=== PATIENT | female | born 1990 | race Caucasian/White ===

== ENCOUNTER 2016-11-29 11:45 | Emergency (ER) | payer OTHER ==
[~2016-11-29] VITALS: Ht 152.4 cm; Wt 58.5 kg
[2016-11-29 11:52] VITALS: TEMP 36.9
[2016-11-29] MEDS ORDERED: SODIUM CHLORIDE 0.9% 1000ML 1,000 ML IV STA (12:09)
[2016-11-29] MEDS ORDERED: DiphenhydrAMINE HCL 50 MG/ML VIAL IV STA (12:09)
[2016-11-29] MEDS ORDERED: BACITRACIN OINT 15 GM TUBE EXT STA (12:09)
[2016-11-29] MEDS ORDERED: KETOROLAC TROMETHAMINE 30 MG/ML VIAL IV STA (12:09)
[2016-11-29] MEDS ORDERED: ONDANSETRON INJ 2 MG/ML 2 ML VIAL IV STA (12:09)
[2016-11-29] MEDS ORDERED: CEFTRIAXONE SOD INJ 1 GM ADDVIAL IV STA (12:11)
[2016-11-29] MEDS ORDERED: SULFAMETHOXAZOLE/TRIMETHOPRIM DS 800/160MG TAB PO STA (12:11)
--- NOTE | 2016-11-29 12:12 | EMERGENCY ROOM VISIT NOTE ---
History Report prepared by Monyiblionel: Maggie Menon Under the Supervision of: Dr. Carson Frost M.D. First contact with patient: 11:59 Chief Complaint: INFECTION Stated Complaint: SORES, RASH, VOMITING Nursing Triage Summary: Pt presents with generalized wounds. Hx of MRSA. Pus. Seen by PCP on Sat and started on unknown meds, "didn't get them because doesn't have insurance." N/V, SOB, "can't get enough to drink." History of Present Illness The patient is a 26 year old female who presents to the Emergency Room with complaints of a worsening infection for the past 4 days. She reports this past Saturday, she saw her primary care physician, Dr. Washburn of [facility] , who recommended she start medication, but the patient declined as she does not currently have insurance. The patient admits to a history of MRSA and IV drug abuse. She notes the wounds are located all over her face and have been spreading over the past few days. She rates her discomfort as a 7/10 in severity. Some of the wounds are oozing pus. The patient complains of nausea and vomiting and states she feels very dehydrated. She also complains of feeling short of breath. Source of History: patient Onset: 4 days [employer] Position: head (face) Symptom Intensity: 7/10 Quality: other (infection) Timing: worsening Associated Symptoms: + SOB, + nausea, + vomiting Review of Systems See HPI for pertinent positives & negatives. A total of 10 systems reviewed and were otherwise negative. Past Medical & Surgical Social History Problems: (1) ETOH abuse (2) IV drug abuse Family History Cancer Hypertension Social History Smoking Status: Current Every Day Smoker Alcohol Use: heavy Drug Use: none Marital Status: single Housing Status: lives with family Occupation Status: unemployed Current/Historical Medications Scheduled Cephalexin Monohydrate (Keflex), 1 CAP PO QID Sulfa/Trimethoprim (Bactrim Ds 800MG/160MG), 1 TAB PO BID Allergies Coded Allergies: No Known Allergies (Unverified , 11/29/16) Physical Exam Vital Signs Date Time Temp Pulse Resp B/P (MAP) Pulse Ox O2 Delivery O2 Flow Rate FiO2 11/29/16 16:47 129 20 115/71 99 Room Air 11/29/16 14:56 127 20 116/77 97 Room Air 11/29/16 13:50 102 20 145/72 100 Room Air 11/29/16 12:23 110 11/29/16 12:16 100 Room Air 11/29/16 11:52 36.9 123 20 116/81 99 Room Air Physical Exam GENERAL: Patient is a healthy-appearing well-nourished 26 year old female, actively itching her skin HEAD: Normocephalic atraumatic. Multiple sores all over face EYES: Ocular movements intact pupils equal and react to light OROPHARYNX mucous membranes are moist no exudates present no erythema or edema present NECK: Supple no nuchal rigidity CHEST: Good equal expansion LUNGS: Clear and equal to auscultation CARDIAC: Normal S1 and S2 ABDOMEN: Soft nontender no guarding BACK: No CVA tenderness EXTREMITIES: No pain upon palpation normal muscle strength in all groups no clubbing cyanosis or edema NEURO: Patient is following commands is answering questions appropriately. Alert and oriented x3 Cranial Nerves 2-12 grossly intact Medical Decision & Procedures Laboratory Results 11/29/16 12:32 Red Blood Count 4.45, Mean Corpuscular Volume 84.7, Mean Corpuscular Hemoglobin 31.0, Mean Corpuscular Hemoglobin Concent 36.6, Mean Platelet Volume 9.6, Neutrophils (%) (Auto) 71.1, Lymphocytes (%) (Auto) 20.9, Monocytes (%) (Auto) 6.6, Eosinophils (%) (Auto) 0.9, Basophils (%) (Auto) 0.2, Neutrophils # (Auto) 8.65, Lymphocytes # (Auto) 2.55, Monocytes # (Auto) 0.80, Eosinophils # (Auto) 0.11, Basophils # (Auto) 0.03 11/29/16 12:32 Test 11/29/16 12:32 White Blood Count 12.18 K/uL (4.8-10.8) Red Blood Count 4.45 M/uL (4.2-5.4) Hemoglobin 13.8 g/dL (12.0-16.0) Hematocrit 37.7 % (37-47) Mean Corpuscular Volume 84.7 fL (80-100) Mean Corpuscular Hemoglobin 31.0 pg (25-34) Mean Corpuscular Hemoglobin Concent 36.6 g/dl (32-36) Platelet Count 242 K/uL (130-400) Mean Platelet Volume 9.6 fL (7.4-10.4) Neutrophils (%) (Auto) 71.1 % Lymphocytes (%) (Auto) 20.9 % Monocytes (%) (Auto) 6.6 % Eosinophils (%) (Auto) 0.9 % Basophils (%) (Auto) 0.2 % Neutrophils # (Auto) 8.65 K/uL (1.4-6.5) Lymphocytes # (Auto) 2.55 K/uL (1.2-3.4) Monocytes # (Auto) 0.80 K/uL (0.11-0.59) Eosinophils # (Auto) 0.11 K/uL (0-0.5) Basophils # (Auto) 0.03 K/uL (0-0.2) RDW Standard Deviation 43.8 fL (36.4-46.3) RDW Coefficient of Variation 14.0 % (11.5-14.5) Immature Granulocyte % (Auto) 0.3 % Immature Granulocyte # (Auto) 0.04 K/uL (0.00-0.02) Anion Gap 10.0 mmol/L (3-11) Est Creatinine Clear Calc Drug Dose 72.9 ml/min Estimated GFR () 98.2 Estimated GFR (Non- 84.7 BUN/Creatinine Ratio 11.0 (10-20) Calcium Level 9.4 mg/dl (8.5-10.1) Total Bilirubin 0.4 mg/dl (0.2-1) Aspartate Amino Transf (AST/SGOT) 33 U/L (15-37) Alanine Aminotransferase (ALT/SGPT) 35 U/L (12-78) Alkaline Phosphatase 92 U/L (45-117) Total Protein 7.8 gm/dl (6.4-8.2) Albumin 3.6 gm/dl (3.4-5.0) Globulin 4.2 gm/dl (2.5-4.0) Albumin/Globulin Ratio 0.9 (0.9-2) Labs reviewed by ED physician. Medications Administered Medications (Trade) Dose Ordered Sig/David Route Start Time Stop Time Status Last Admin Dose Admin Sodium Chloride 1,000 ml @ 999 mls/hr Q1H1M STAT IV 11/29/16 12:09 11/29/16 13:09 DC 11/29/16 13:05 999 MLS/HR Ketorolac Tromethamine (Toradol Inj) 30 mg NOW STAT IV 11/29/16 12:09 11/29/16 12:11 DC 11/29/16 13:06 30 MG Diphenhydramine HCl (Benadryl Inj) 50 mg NOW STAT IV 11/29/16 12:09 11/29/16 12:11 DC 11/29/16 13:05 50 MG Ondansetron HCl (Zofran Inj) 4 mg NOW STAT IV 11/29/16 12:09 11/29/16 12:11 DC 11/29/16 13:05 4 MG Bacitracin (Bacitracin Oint) 1 appln NOW STAT EXT 11/29/16 12:09 11/29/16 12:12 DC 11/29/16 12:09 1 APPLN Ceftriaxone Sodium (Rocephin Inj) 1 gm NOW STAT IV 11/29/16 12:11 11/29/16 12:13 DC 11/29/16 12:11 1 GM Trimethoprim/ Sulfamethoxazole (Septra Ds 800/ 160MG Tab) 1 tab NOW STAT PO 11/29/16 12:11 11/29/16 12:13 DC 11/29/16 12:11 1 TAB Lorazepam (Ativan Inj) 1 mg NOW STAT IV 11/29/16 12:18 11/29/16 12:19 DC 11/29/16 13:06 1 MG Potassium Chloride (Klor-Con M10) 80 meq NOW STAT PO 11/29/16 13:15 11/29/16 13:16 DC 11/29/16 13:15 80 MEQ Nicotine (Nicoderm Cq 14MG Patch) 1 patch STK-MED ONCE .ROUTE 11/29/16 16:17 11/29/16 16:18 DC 11/29/16 16:21 1 PATCH ECG Indication: weakness Rate (beats per minute): 102 Rhythm: sinus tachycardia Findings: no acute ischemic change, no ectopy ED Course 1206: Past medical records reviewed. The patient was evaluated in room B10. A complete history and physical examination was performed. 1209: Bacitracin 1 appl EXT, Zofran 4 mg IV, Benadryl 50 mg, Toradol 30 mg IV, NSS 1000 ml @ 999 mls/hr IV. 1211: Septra Ds 800/160 mg 1 tab PO, Rocephin 1 gm IV. 1218: Ativan 1 mg IV. 1315: Potassium Chloride 80 meq PO. 1617: Nicotine 1 patch TD. 1630: I reevaluated the patient. She is feeling much better. I discussed her results and discharge instructions and she verbalized complete understanding and agreement. I did decline to prescribe pain medication for the patient. Medical Decision Prior records reviewed and summarized as above. Triage Nursing notes reviewed. The patient's history was concerning for swelling and redness of the skin. Differential diagnosis: Etiologies such as cellulitis, abscess, MRSA infection, DVT, necrotizing fasciitis, dermatitis, drug eruption, as well as others were entertained.. This is a 26-year-old female who was recently released from care home comes to the emergency department complaining of multiple sores all over her face. I suspect the patient has taken and illicit substance that has caused her to itch her face however the patient denies this. There was also some suspicion from nursing that the patient has taken something in the room. An IV was established , the patient given normal saline bolus, Ativan, Benadryl. Repeat examination revealed improvement patient's symptoms. The patient was started on Rocephin as well as Bactrim here in the emergency department. The patient again denied taking anything however refused over multiple hours to give a urine sample here in the emergency department. The patient is requesting something ago home with however I will place her on Keflex and Bactrim and stressed the need for follow- up with her primary care physician. Medication Reconcilliation Current Medication List: was personally reviewed by me Blood Pressure Screening Patient's blood pressure: Normal blood pressure Blood pressure disposition: Did not require urgent referral Impression Primary Impression: Abrasions of multiple sites Scribe Attestation The scribe's documentation has been prepared under my direction and personally reviewed by me in its entirety. I confirm that the note above accurately reflects all work, treatment, procedures, and medical decision making performed by me. Departure Information Dispostion Home / Self-Care Prescriptions Sulfa/Trimethoprim (Bactrim Ds 800MG/160MG) Tab 1 TAB PO BID for 10 Days, #20 TAB Prov: Carson Frost MD 11/29/16 Cephalexin Monohydrate (Keflex) 500 Mg Cap 1 CAP PO QID for 10 Days, #40 CAP Prov: Carson Frost MD 11/29/16 Referrals Dona Washburn D.O. (PCP) Patient Instructions My [facility] Additional Instructions Apply bacitracin twice a day to sores You have been examined and treated today on an emergency basis only. This is not a substitute for, or an effort to provide, complete comprehensive medical care. It is impossible to recognize and treat all injuries or illnesses in a single emergency department visit. It is therefore important that you follow up closely with Dr Washburn. Call as soon as possible for an appointment. Thank you for your time and consideration. I look forward to speaking with you again soon. Please don't hesitate to call us if you have any questions.
[2016-11-29 12:16] VITALS: O2SAT 100; Ht 152.4 cm; Wt 58.5 kg
[2016-11-29] MEDS ORDERED: LORAZEPAM 2 MG/ML 1 ML VIAL IV STA (12:18)
[2016-11-29 12:50] LABS: BASO % 0.2 %; BASO ABS # 0.03 K/uL (0-0.2); COMPLETE YES; EOS % 0.9 %; HEMATOCRIT 37.7 % (37-47); IG% 0.3 %; LYMPH % 20.9 %; LYMPH ABS # 2.55 K/uL (1.2-3.4); MEAN CELL VOLUME 84.7 fL (80-100); MEAN CORPUSCULAR HGB CONC 36.6 g/dl (32-36); MEAN PLATELET VOLUME 9.6 fL (7.4-10.4); MONO % 6.6 %; NEUT % 71.1 %; PLATELET COUNT 242 K/uL (130-400); RED BLOOD COUNT 4.45 M/uL (4.2-5.4); WHITE BLOOD COUNT 12.18 K/uL (4.8-10.8)
[2016-11-29 13:13] LABS: CALCIUM 9.4 mg/dl (8.5-10.1); CREATININE 0.92 mg/dl (0.60-1.20)
[2016-11-29] MEDS ORDERED: POTASSIUM CHLORIDE 10 MEQ TABCR PO STA (13:15)
[2016-11-29 13:16] LABS: ALB/GLOB RATIO 0.9 (0.9-2)
[2016-11-29] MEDS ORDERED: NICOTINE 14 MG/24 HR TDSY ONE (16:17)
[2016-11-29] MEDS ORDERED: NICOTINE 21 MG/24 HR TDSY TD STA (16:18)
[2016-11-29] MEDS ORDERED: NICOTINE POLACRILEX 2 MG GUM MT STA (16:18)
[2016-11-29] MEDS ORDERED: CEPH500C PO (16:35)
[2016-11-29] MEDS ORDERED: SULF800T23 PO (16:35)
[2016-11-29 16:47] VITALS: BP 115/71; PULSE 129; O2SAT 99
== END 2016-11-29 17:20 | disposition home or self-care (01) ==
LOC: C.EDB 11:49
DX: T14.8 Other injury of unspecified body region (principal); L08.9 Local infection of the skin and subcutaneous tissue, unspecified; X58.XXXA Exposure to other specified factors, initial encounter; R00.0 Tachycardia, unspecified; F17.200 Nicotine dependence, unspecified, uncomplicated; Z86.14 Personal history of Methicillin resistant Staphylococcus aureus infection; Z80.9 Family history of malignant neoplasm, unspecified; Z82.49 Family history of ischemic heart disease and other diseases of the circulatory system